=== PATIENT | male | born 1955 | race Caucasian/White ===

== ENCOUNTER → 2019-08-23 | Outpatient (CLI) | payer OTHER ==
[~2019-08-23] MED LIST: Advair Hfa 230-12 GM; ERGO400; HYDSUL200 PO; MONT10T PO; Multiple Vitam1 EAC1 PO; NAPR500 PO; PROAIR RESPICL90 MCG; Synthroid25 MCG; ZOLP5 PO
== END | disposition home or self-care (01) ==
LOC: LAB SHORT 08:09 → PLD 08:09
DX: L57.0 Actinic keratosis (principal)
CPT/HCPCS: 88305

== ENCOUNTER 2020-05-16 10:50 | Day surgery (SDC) | payer OTHER ==
[~2020-05-16] VITALS: Ht 170.2 cm; Wt 91.8 kg
[2020-07-04] MEDS ORDERED: FLUT1DIS5 INH (08:58)
[2020-07-04] MEDS ORDERED: ALBU90OI INH (08:58)
[2020-07-04] MEDS ORDERED: ALLO100 PO (08:59)
[2020-07-04] MEDS ORDERED: COLCHICINE0.6 MG PO (08:59)
[2020-07-04] MEDS ORDERED: CLOB.05TO (08:59)
[2020-07-04] MEDS ORDERED: VOLTAREN ARTHRI20 GM (09:00)
[2020-07-04] MEDS ORDERED: GABA300 PO (09:00)
[2020-07-04] MEDS ORDERED: HYDSUL200 PO (09:00)
[2020-07-04] MEDS ORDERED: CYCL10 PO (09:00)
[2020-07-04] MEDS ORDERED: Ketoconazole15 GM (09:01)
[2020-07-04] MEDS ORDERED: MONT10T PO (09:01)
[2020-07-04] MEDS ORDERED: SYNTHROID150 MC1 PO (09:01)
[2020-07-04] MEDS ORDERED: NAPR500 PO (09:01)
[2020-07-04] MEDS ORDERED: PRED20 PO (09:02)
[2020-07-04] MEDS ORDERED: AMBIEN10 MG PO (09:02)
== END 2020-05-16 12:23 | disposition home or self-care (01) ==
LOC: ORSCSDS 10:50
PROVIDERS: Anesthesiology
PROC: 3E0R33Z Introduction of Anti-inflammatory into Spinal Canal, Percutaneous Approach (ICD-10-PCS; principal; 2020-05-16 11:45)
DX: M51.16 Intervertebral disc disorders with radiculopathy, lumbar region (principal); J45.909 Unspecified asthma, uncomplicated; E03.9 Hypothyroidism, unspecified; E66.9 Obesity, unspecified; Z68.32 Body mass index [BMI] 32.0-32.9, adult; Z79.01 Long term (current) use of anticoagulants; Z79.899 Other long term (current) drug therapy
CPT/HCPCS: J1040

== ENCOUNTER 2020-07-10 11:01 | Day surgery (SDC) | payer OTHER ==
[~2020-07-10] VITALS: Ht 170.2 cm; Wt 90.2 kg
[~2020-07-10 11:01] MED LIST changes: +ALBU90OI INH; +ALLO100 PO; +AMBIEN10 MG PO; +CLOB.05TO; +COLCHICINE0.6 MG PO; +CYCL10 PO; +FLUT1DIS5 INH; +GABA300 PO; +Ketoconazole15 GM; +PRED20 PO; +SYNTHROID150 MC1 PO; +VOLTAREN ARTHRI20 GM
== END 2020-07-10 12:35 | disposition home or self-care (01) ==
LOC: ORSCSDS 11:01
PROVIDERS: Anesthesiology
PROC: 3E0R33Z Introduction of Anti-inflammatory into Spinal Canal, Percutaneous Approach (ICD-10-PCS; principal; 2020-07-10 12:00)
DX: M51.16 Intervertebral disc disorders with radiculopathy, lumbar region (principal); E66.9 Obesity, unspecified; Z68.31 Body mass index [BMI] 31.0-31.9, adult; Z79.899 Other long term (current) drug therapy
CPT/HCPCS: J1040

== ENCOUNTER → 2020-08-26 | Outpatient (CLI) | payer OTHER | END | disposition home or self-care (01) | LOC: LAB SHORT 11:30 | DX: D48.5 Neoplasm of uncertain behavior of skin (principal) | CPT/HCPCS: 88305 ==

== ENCOUNTER 2020-10-13 14:22 | Day surgery (SDC) | payer OTHER ==
[~2020-10-13] VITALS: Ht 170.2 cm; Wt 89.9 kg
== END 2020-10-13 15:45 | disposition home or self-care (01) ==
LOC: ORSCSDS 14:22
PROVIDERS: Anesthesiology
PROC: 3E0R33Z Introduction of Anti-inflammatory into Spinal Canal, Percutaneous Approach (ICD-10-PCS; principal; 2020-10-13 15:30)
DX: M51.16 Intervertebral disc disorders with radiculopathy, lumbar region (principal); M54.5 Low back pain; J45.909 Unspecified asthma, uncomplicated; E03.9 Hypothyroidism, unspecified; E66.9 Obesity, unspecified; Z68.31 Body mass index [BMI] 31.0-31.9, adult; Z79.899 Other long term (current) drug therapy
CPT/HCPCS: J1040

== ENCOUNTER 2020-12-10 09:34 | Day surgery (SDC) | payer OTHER ==
[~2020-12-10] VITALS: Ht 170.2 cm; Wt 90.4 kg
== END 2020-12-10 10:57 | disposition home or self-care (01) ==
LOC: ORSCSDS 09:34
PROVIDERS: Anesthesiology
PROC: 3E0R33Z Introduction of Anti-inflammatory into Spinal Canal, Percutaneous Approach (ICD-10-PCS; principal; 2020-12-10 10:30)
DX: M51.16 Intervertebral disc disorders with radiculopathy, lumbar region (principal); M54.50 Low back pain, unspecified; I10 Essential (primary) hypertension; J45.909 Unspecified asthma, uncomplicated; E03.9 Hypothyroidism, unspecified; Z79.899 Other long term (current) drug therapy
CPT/HCPCS: J1040

== ENCOUNTER 2021-05-28 07:43 | Day surgery (SDC) | payer OTHER ==
[~2021-05-28] VITALS: Ht 170.2 cm; Wt 88.2 kg
== END 2021-05-28 08:50 | disposition home or self-care (01) ==
LOC: ORSCSDS 07:43
PROVIDERS: Anesthesiology
PROC: 3E0R33Z Introduction of Anti-inflammatory into Spinal Canal, Percutaneous Approach (ICD-10-PCS; principal; 2021-05-28 08:30)
DX: M51.16 Intervertebral disc disorders with radiculopathy, lumbar region (principal); M48.061 Spinal stenosis, lumbar region without neurogenic claudication; M54.50 Low back pain, unspecified; J45.909 Unspecified asthma, uncomplicated; E03.9 Hypothyroidism, unspecified; M06.9 Rheumatoid arthritis, unspecified; Z79.899 Other long term (current) drug therapy
CPT/HCPCS: J1040

== ENCOUNTER 2021-09-30 13:50 | Day surgery (SDC) | payer OTHER ==
[~2021-09-30] VITALS: Ht 170.2 cm; Wt 90.6 kg
== END 2021-09-30 14:50 | disposition home or self-care (01) ==
LOC: ORSCSDS 13:50
PROVIDERS: Anesthesiology
PROC: 3E0R33Z Introduction of Anti-inflammatory into Spinal Canal, Percutaneous Approach (ICD-10-PCS; principal; 2021-09-30 15:00)
DX: M54.16 Radiculopathy, lumbar region (principal); J45.909 Unspecified asthma, uncomplicated; E03.9 Hypothyroidism, unspecified; M19.90 Unspecified osteoarthritis, unspecified site; M54.9 Dorsalgia, unspecified; E66.9 Obesity, unspecified; Z68.31 Body mass index [BMI] 31.0-31.9, adult; Z87.891 Personal history of nicotine dependence; Z79.899 Other long term (current) drug therapy
CPT/HCPCS: J1040

== ENCOUNTER 2021-12-07 10:26 | Day surgery (SDC) | payer OTHER ==
[~2021-12-07] VITALS: Ht 170.2 cm; Wt 90.2 kg
--- NOTE | 2021-12-07 12:47 | NUR ---
12/07/21 1247 CHEMA BANDA PT C/O OF PAIN 10/14 ONCE HE STARTED WALKING. TOOK OUT BY WC
== END 2021-12-07 12:34 | disposition home or self-care (01) ==
LOC: ORSCSDS 10:26
PROVIDERS: Anesthesiology
PROC: 3E0R33Z Introduction of Anti-inflammatory into Spinal Canal, Percutaneous Approach (ICD-10-PCS; principal; 2021-12-07 11:30)
DX: M51.16 Intervertebral disc disorders with radiculopathy, lumbar region (principal); M54.50 Low back pain, unspecified; M48.061 Spinal stenosis, lumbar region without neurogenic claudication; J45.909 Unspecified asthma, uncomplicated; E03.9 Hypothyroidism, unspecified; M19.90 Unspecified osteoarthritis, unspecified site; Z87.891 Personal history of nicotine dependence; Z79.899 Other long term (current) drug therapy
CPT/HCPCS: J1040; J2001

== ENCOUNTER 2022-07-26 13:02 | Emergency (ER) | payer OTHER ==
[~2022-07-26] VITALS: Ht 170.2 cm; Wt 81.7 kg
[2022-07-26 13:10] VITALS: BP 140/74
== END 2022-07-26 16:37 | disposition home or self-care (01) ==
LOC: ER 13:02
DX: R60.0 Localized edema (principal); Z79.899 Other long term (current) drug therapy; Z79.52 Long term (current) use of systemic steroids; Z87.891 Personal history of nicotine dependence
CPT/HCPCS: 93970; 99284-25

== ENCOUNTER → 2024-07-11 | Outpatient (CLI) | payer OTHER ==
[~2024-07-11] MED LIST changes: +ATOR40TA PO; +CELEBREX200 MG PO; +LOSA50 PO; +OXYC10TA19 PO; +PANTOPRAZOLE SO40 M2 PO; +ROPINIROLE HCL0.5 MG PO
[2024-07-11 16:17] LABS: U Amphetamine Screen Not Detected; U Barbituate Screen Not Detected; U Benzodiazapine Screen DETECTED; U Buprenorphine Screen Not Detected; U Cannabinoids Screen Not Detected; U Cocaine Screen Not Detected; U Methadone Screen Not Detected; U Methamphetamine Screen Not Detected; U Opiates Screen Not Detected; U Oxycodone Screen DETECTED; U Phencyclidine Screen Not Detected
[2024-07-14 07:13] LABS: 6-ACETYLMORPHINE, URN, QUANT <10 ng/mL; CODEINE, URN, QUANT <20 ng/mL; HYDROCODONE, URN, QUANT <20 ng/mL; HYDROMORPHONE, URN, QUANT <20 ng/mL; MORPHINE, URN, QUANT <20 ng/mL; NORHYDROCODONE, URN, QUANT <20 ng/mL; NOROXYCODONE, URN, QUANT >4000 ng/mL; NOROXYMORPHONE, URN, QUANT 389 ng/mL; OXYCODONE, URN, QUANT >4000 ng/mL; OXYMORPHONE, URN, QUANT 92 ng/mL
[2024-07-14 15:32] LABS: 7-AMINOCLONAZEPAM, URN, QUANT <5 ng/mL; A-HYDROXYALPRAZOLAM, URN, QNT <5 ng/mL; A-HYDROXYMIDAZOLAM, URN, QNT <20 ng/mL; ALPRAZOLAM, URN, QUANT <5 ng/mL; CHLORDIAZEPOXIDE, URN, QUANT <20 ng/mL; CLONAZEPAM, URN, QUANT <5 ng/mL; DIAZEPAM, URN, QUANT <20 ng/mL; LORAZEPAM, URN, QUANT <20 ng/mL; MIDAZOLAM, URN, QUANT <20 ng/mL; NORDIAZEPAM, URN, QUANT <20 ng/mL; OXAZEPAM, URN, QUANT <20 ng/mL; TEMAZEPAM, URN, QUANT <20 ng/mL
== END | disposition home or self-care (01) ==
LOC: LAB 13:23 → LAB SHORT 13:23
PROVIDERS: Internal Medicine
DX: M48.062 Spinal stenosis, lumbar region with neurogenic claudication (principal); Z79.899 Other long term (current) drug therapy
CPT/HCPCS: G0480; G0481